=== PATIENT | male | born 1935 | race Caucasian/White ===

== ENCOUNTER → 2016-12-02 | Outpatient (CLI) | payer OTHER | LOC: CIMAGING 14:36 | PROVIDERS: ATTEND Internal Medicine | DX: J40 Bronchitis, not specified as acute or chronic (principal); J98.11 Atelectasis | CPT/HCPCS: 71020-PO ==

== ENCOUNTER → 2016-12-03 | Outpatient (CLI) | payer OTHER | LOC: CIMAGING 12:19 | PROVIDERS: ATTEND Internal Medicine | DX: J98.19 Other pulmonary collapse (principal); R91.1 Solitary pulmonary nodule; J45.909 Unspecified asthma, uncomplicated; J47.9 Bronchiectasis, uncomplicated; J98.11 Atelectasis | CPT/HCPCS: 71250-PO ==

== ENCOUNTER → 2017-10-19 | Outpatient (CLI) | payer OTHER, MEDICARE ==
[~2017-10-19] MED LIST: IOPAMIDOL (ISOVUE-300) 100 ML BTL ONE
== END ==
LOC: CIMAGING 15:17
PROVIDERS: ATTEND Internal Medicine
DX: R10.32 Left lower quadrant pain (principal); M25.552 Pain in left hip
CPT/HCPCS: 73502; 74177; Q9967; 36415-PO; 80048-PO; 81003-PO; 85025-PO

== ENCOUNTER → 2017-11-02 | Outpatient (CLI) | payer OTHER, MEDICARE | LOC: FIMAGING 13:14 | PROVIDERS: ATTEND Internal Medicine | DX: M51.36 Other intervertebral disc degeneration, lumbar region (principal); M48.061 Spinal stenosis, lumbar region without neurogenic claudication; G96.19 Other disorders of meninges, not elsewhere classified ==